=== PATIENT | female | born 1945 ===

== ENCOUNTER 2021-07-23 15:21 | Outpatient (CLI) | payer OTHER ==
[2021-08-06] MEDS ORDERED: PREVACID15 M1 PO (12:37)
[2021-08-06] MEDS ORDERED: ZOCOR20 MG PO (12:37)
[2021-08-06] MEDS ORDERED: CHILDREN'S ASPI81 MG PO (12:38)
[2021-08-06] MEDS ORDERED: LISINOPRIL10 MG PO (12:46)
== END 2021-07-23 15:24 | disposition home or self-care (01) ==
LOC: RAD 15:21
PROVIDERS: ATTEND Orthopaedic Surgery
DX: M25.512 Pain in left shoulder (principal)

== ENCOUNTER 2021-07-28 09:09 | Outpatient (CLI) | payer OTHER ==
[2021-08-06] MEDS ORDERED: PREVACID15 M1 PO (12:37)
[2021-08-06] MEDS ORDERED: ZOCOR20 MG PO (12:37)
[2021-08-06] MEDS ORDERED: CHILDREN'S ASPI81 MG PO (12:38)
[2021-08-06] MEDS ORDERED: LISINOPRIL10 MG PO (12:46)
== END 2021-07-28 09:11 | disposition home or self-care (01) ==
LOC: LAB 09:09
PROVIDERS: ATTEND Orthopaedic Surgery
DX: D64.9 Anemia, unspecified (principal); E88.9 Metabolic disorder, unspecified; D68.8 Other specified coagulation defects; N39.0 Urinary tract infection, site not specified; A49.02 Methicillin resistant Staphylococcus aureus infection, unspecified site; E11.9 Type 2 diabetes mellitus without complications; Z76.89 Persons encountering health services in other specified circumstances; I10 Essential (primary) hypertension; I49.9 Cardiac arrhythmia, unspecified

== ENCOUNTER 2021-08-08 05:15 | Day surgery (SDC) | payer OTHER ==
[~2021-08-08 05:15] MED LIST: CHILDREN'S ASPI81 MG PO; LISINOPRIL10 MG PO; PREVACID15 M1 PO; ZOCOR20 MG PO
== END 2021-08-08 12:00 | disposition home or self-care (01) ==
LOC: CIR.AMB 05:15
PROVIDERS: ATTEND Orthopaedic Surgery
DX: D17.22 Benign lipomatous neoplasm of skin and subcutaneous tissue of left arm (principal); I10 Essential (primary) hypertension; E66.9 Obesity, unspecified